=== PATIENT | male | born 1940 | race Caucasian/White ===

== ENCOUNTER → 2016-12-23 | Outpatient (REF) | LOC: ZLAB.WCH 08:46 | DX: Z01.89 Encounter for other specified special examinations (principal) | CPT/HCPCS: G0103 ==

== ENCOUNTER → 2016-12-23 | Outpatient (REF) | LOC: ZLAB.WCH 18:09 | DX: Z01.89 Encounter for other specified special examinations (principal) ==

== ENCOUNTER → 2017-03-24 | Outpatient (REF) | LOC: ZLAB.WCH 10:30 | DX: Z01.89 Encounter for other specified special examinations (principal) ==

== ENCOUNTER → 2017-12-22 | Outpatient (REF) | LOC: ZLAB.WCH 16:12 | DX: Z01.89 Encounter for other specified special examinations (principal) | CPT/HCPCS: G0103 ==

== ENCOUNTER → 2018-04-23 | Outpatient (REF) | LOC: ZLAB.WCH 09:33 | DX: Z01.89 Encounter for other specified special examinations (principal) ==

== ENCOUNTER → 2018-10-22 | Outpatient (REF) | LOC: ZLAB.WCH 16:00 | DX: Z01.89 Encounter for other specified special examinations (principal) | CPT/HCPCS: G0103 ==

== ENCOUNTER → 2019-05-24 | Outpatient (CLI) | payer MEDICARE, BC | LOC: MHCPAIN 08:58 | DX: G89.29 Other chronic pain (principal); M47.817 Spondylosis without myelopathy or radiculopathy, lumbosacral region; M54.16 Radiculopathy, lumbar region; M53.3 Sacrococcygeal disorders, not elsewhere classified | CPT/HCPCS: G0463 ==

== ENCOUNTER 2020-01-27 11:07 | Inpatient (IN) | payer MEDICARE, BC ==
[~2020-01-27] VITALS: Ht 175.3 cm; Wt 109.4 kg
[2020-01-27] MEDS ORDERED: ZOCOR 20MG20 MG PO (13:54)
[2020-01-27] MEDS ORDERED: ASPIRIN 81M81 MG/TA2 PO (13:54)
[2020-01-27] MEDS ORDERED: OMEGA-3 1000 MG1 CAP PO (13:55)
[2020-01-27] MEDS ORDERED: GLUCOSAMIN 500 PO (13:55)
[2020-01-27 13:57] VITALS: BP 150/88; BP 1500/88; PULSE 89; TEMP 99.2
[2020-01-27] MEDS ORDERED: NORVASC 5MG5 MG/TAB PO (15:22)
[2020-01-27] MEDS ORDERED: ZESTRIL 20MG TA20 MG PO (15:23)
[2020-01-27] MEDS ORDERED: PRIL40 PO (15:23)
[2020-01-27] MEDS ORDERED: COMBIGAN 0.2%-0.5 ML OD (15:25)
[2020-01-27] MEDS ORDERED: VIAGRA100 M1 PO (15:25)
[2020-01-27] MEDS ORDERED: XALATAN EYE DROPS OD (15:26)
--- NOTE | 2020-01-27 15:30 | NUR ---
Pt arrived into room 305 via EMS. He is A/O x4. Pt oriented to room and staff. Pt is currently on RA, no respiratory distress, occasional wet cough. Pt denies any pain. Ambulates independently. INT to RAC free from complications. POC discussed with patient who verbalizes understanding. Pt in isolation precautions. Will continue to monitor.
[2020-01-27 16:22] VITALS: BP 158/82; PULSE 86; TEMP 99
--- NOTE | 2020-01-27 20:00 | NUR ---
Received report from TEJ Villegas. Piter/Ox4. Denies any pain,SOB, or discomfort at this time. Meds adminsitered. Tele monitor in place. Indepedent in room. RAC IV intact with fluids infusing, dressing changed,CDI. Needs met at this time. Call light within reach.
[2020-01-27 20:46] VITALS: BP 140/70; PULSE 90; TEMP 98.8
[2020-01-27 23:30] VITALS: BP 139/72; PULSE 79; TEMP 98.7
[2020-01-28 04:22] VITALS: BP 141/78; PULSE 80; TEMP 98.6
--- NOTE | 2020-01-28 06:29 | NUR ---
Pt made no complaints during this shift. Meds adminsitered. Needs met. Call light within reach.
[2020-01-28 06:37] LABS: BASO # 0.1 (0.0-0.2); EOS # 0.9 (0.0-0.7); EOS % 9.5 % (0-4.0); GRAN # 6.5 (1.4-6.5); HEMATOCRIT 38.3 % (42.0-52.0); HEMOGLOBIN 12.5 g/dl (13.5-18.0); LYMPH # 1.4 (1.2-3.4); MEAN CELL VOLUME 101 fl (80.0-100.0); MEAN CORPUSCULAR HEMOGLOBIN 33 pg (27.0-31.0); MEAN CORPUSCULAR HGB CONC 33 g/dl (33.0-37.0); MEAN PLATELET VOLUME 10.7 fl (7.4-10.4); MONO # 0.7 (0.1-0.6); MONO % 7.6 % (1.7-9.3); PLATELET COUNT 205 K/mm3 (130-400); RED BLOOD COUNT 3.81 M/mm3 (4.20-5.60); REDCELL DISTRIBUTION WIDTH-CV 12.1 % (11.5-14.5)
--- NOTE | 2020-01-28 06:41 | NUR ---
Report given to TEJ Villegas.
[2020-01-28 06:57] LABS: ALBUMIN 3.5 gm/dL (3.5-5.0); BILIRUBIN,TOTAL 1.4 mg/dL (0.0-1.0); CALCIUM 8.8 mg/dL (8.4-10.2); CREATININE, serum 0.92 (0.66-1.25); TOTAL PROTEIN 6.8 gm/dL (6.4-8.2)
[2020-01-28 08:36] VITALS: BP 168/82; PULSE 78; TEMP 98.7
--- NOTE | 2020-01-28 08:45 | NUR ---
Pt assessment complete. Pt continues to be in isolation for Covid pending. Pt denies any pain. No SOB, continues to have a productive cough. IVF into RAC without complications. No needs at this time. Call light within reach.
[2020-01-28 12:00] VITALS: BP 138/66; PULSE 71; TEMP 98.8
--- NOTE | 2020-01-28 13:51 | NUR ---
GRZEGORZ met with the patient to complete the initial intake. The patient lives in outside of [place] with his . The patient has a CPAP and is independent with ADLs. The patient was admitted for PNA and is on room air at this time. The patient's PCP is Dr. Haider and patient receives medications from [facility]. The patient does not have advanced directives in the EMR but states they are completed and designate the his son, Gordon. The patient plans to return home at discharge. There are no additional needs at this time.
[2020-01-28 16:01] VITALS: BP 122/65; PULSE 72; TEMP 98.9
[2020-01-28 19:38] VITALS: BP 129/54; PULSE 75; TEMP 98.3
--- NOTE | 2020-01-28 22:30 | NUR ---
Initial shift assessment done- denies pain, denies SOB, on Room air, has productive cough of clear sputum, Tele on, IV fluids of NS at 75cc/hr-- no requests at this time, states had a late supper and does not want a snack--
[2020-01-29 00:12] VITALS: BP 157/63; PULSE 75; TEMP 98.3
[2020-01-29 03:56] VITALS: BP 137/63; PULSE 75; TEMP 97.8
[2020-01-29 06:45] LABS: BASO # 0.1 (0.0-0.2); BASO % 1.3 % (0.0-2.0); EOS # 1.5 (0.0-0.7); EOS % 19.7 % (0-4.0); GRAN # 4.3 (1.4-6.5); GRAN % 55.7 % (42.2-75.2); HEMATOCRIT 37.4 % (42.0-52.0); HEMOGLOBIN 12.2 g/dl (13.5-18.0); LYMPH # 1.2 (1.2-3.4); LYMPH % 15.4 % (20.0-51.0); MEAN CELL VOLUME 100 fl (80.0-100.0); MEAN CORPUSCULAR HEMOGLOBIN 33 pg (27.0-31.0); MEAN CORPUSCULAR HGB CONC 33 g/dl (33.0-37.0); MEAN PLATELET VOLUME 10.9 fl (7.4-10.4); MONO # 0.6 (0.1-0.6); MONO % 7.4 % (1.7-9.3); PLATELET COUNT 211 K/mm3 (130-400); RED BLOOD COUNT 3.74 M/mm3 (4.20-5.60); REDCELL DISTRIBUTION WIDTH-CV 11.9 % (11.5-14.5)
--- NOTE | 2020-01-29 06:45 | NUR ---
Quiet night-no requests during the night- wants to go home today! VSS
[2020-01-29 06:55] LABS: ALBUMIN 3.5 gm/dL (3.5-5.0); BILIRUBIN,TOTAL 0.9 mg/dL (0.0-1.0); CALCIUM 8.7 mg/dL (8.4-10.2); CREATININE, serum 0.79 (0.66-1.25); TOTAL PROTEIN 6.9 gm/dL (6.4-8.2)
[2020-01-29 08:01] VITALS: BP 148/57; PULSE 91; TEMP 98.9
[2020-01-29] MEDS ORDERED: ZITHROMAX 250M250 MG PO (09:49)
--- NOTE | 2020-01-29 10:42 | NUR ---
patient is alert and oriented, denies any pain. Patient state he can breath better now compared to the day he came into the hospital. Patient is discharging with new medication Zithromax 250mg. followup appt with Dr. Haider 0800 on 01/31/20. IV discontinued.
[2020-01-31 14:37] LABS: C.pneumoniae IgG <1:16 (<1:16); C.pneumoniae IgM <1:10 (<1:10); C.psitt IgG <1:16 (<1:16); C.psitt IgM <1:10 (<1:10); C.trachomatis IgG <1:16 (<1:16); CHLAMYDIA DIFF PANEL INTERP Complete (())
== END 2020-01-29 10:48 | disposition home or self-care (01) | DRG 871 ==
LOC: MEDICAL 11:07
PROVIDERS: Physician Assistant; ADMIT Student in an Organized Health Care Education/Training Program
DX: A41.9 Sepsis, unspecified organism (principal); J18.9 Pneumonia, unspecified organism; N17.9 Acute kidney failure, unspecified; E78.5 Hyperlipidemia, unspecified; K21.9 Gastro-esophageal reflux disease without esophagitis; E11.39 Type 2 diabetes mellitus with other diabetic ophthalmic complication; H42 Glaucoma in diseases classified elsewhere; I10 Essential (primary) hypertension; E11.65 Type 2 diabetes mellitus with hyperglycemia; Z20.828 Contact with and (suspected) exposure to other viral communicable diseases; G47.33 Obstructive sleep apnea (adult) (pediatric); E11.51 Type 2 diabetes mellitus with diabetic peripheral angiopathy without gangrene; Z90.49 Acquired absence of other specified parts of digestive tract; Z95.820 Peripheral vascular angioplasty status with implants and grafts; Z98.42 Cataract extraction status, left eye; Z98.41 Cataract extraction status, right eye; Z79.82 Long term (current) use of aspirin; Z87.891 Personal history of nicotine dependence; Z88.0 Allergy status to penicillin; Z88.8 Allergy status to other drugs, medicaments and biological substances
CPT/HCPCS: 99222-AI; 99232-AI; 99239; J0456; J0696; J1644; J1815; J7030; J7050